=== PATIENT | male | born 1990 ===

== ENCOUNTER 2017-09-20 11:14 | Emergency (ER) | payer MEDICAID ==
[2017-09-20 11:44] VITALS: BP 130/79; PULSE 81; TEMP 98; O2SAT 100
--- NOTE | 2017-09-20 14:15 | C.PDOC ---
History Of Present Illness 27 y/o male presents to the ER complaining of pain and swelling to the right nipple which has been present for the past 5 days. Patient states that there is an small ingrown hair in the nipple. Patient denies having fever,chills, and other complaints. Time Seen by Provider: 09/20/17 14:11 Chief Complaint (Nursing): Abnormal Skin Integrity History Per: Patient History/Exam Limitations: no limitations Onset/Duration Of Symptoms: Days Current Symptoms Are (Timing): Still Present Severity: Moderate Past Medical History Reviewed: Historical Data, Nursing Documentation, Vital Signs Vital Signs: Last Vital Signs Temp 98 F 09/20/17 11:40 Pulse 81 09/20/17 11:40 Resp 20 09/20/17 15:07 BP 130/79 09/20/17 11:40 Pulse Ox 100 09/20/17 16:27 - Medical History PMH: Asthma Other Surgeries: Hx of surgeries Family History: States: No Known Family Hx - Social History Hx Alcohol Use: No Hx Substance Use: No - Immunization History Hx Tetanus Toxoid Vaccination: Yes Hx Influenza Vaccination: Yes Hx Pneumococcal Vaccination: Yes Review Of Systems Except As Marked, All Systems Reviewed And Found Negative. Constitutional: Negative for: Fever, Chills Musculoskeletal: Positive for: Other (pain to the right nipple) Physical Exam - Physical Exam Appears: Non-toxic, No Acute Distress Skin: Normal Color, Warm, Other (4x 4 cm indurated tender abscess with surrounding area of cellulitis) Head: Atraumatic, Normacephalic Eye(s): bilateral: Normal Inspection Nose: Normal Oral Mucosa: Moist Neck: Supple Chest: Symmetrical Cardiovascular: Rhythm Regular Respiratory: Normal Breath Sounds, No Rales, No Rhonchi, No Wheezing Neurological/Psych: Oriented x3, Normal Speech ED Course And Treatment O2 Sat by Pulse Oximetry: 100 (RA) Pulse Ox Interpretation: Normal Progress Note: motrin, lido infiltrated, keflex PO. s/p I&D x 6-10 cc's purulent puss, much improved - Incision & Drainage Of Abscess Anesthesia: Lidocaine 1% Prep Used: Sterile Water, Betadine Procedure: Incised W/Scalpel Blade#: (10), Drained Pus (10 CC's), Irrigated Cavity W/Saline, Probed To Break Up Loculations, Packed W/Gauze, Cultures Obtained And Sent To Lab Medical Decision Making Medical Decision Making: small R inframammary abscess now drained and packed Disposition Doctor Will See Patient In The: Office Counseled Patient/Family Regarding: Studies Performed, Diagnosis - Disposition Referrals: [facility] at [facility] [Outside] Disposition: HOME/ ROUTINE Disposition Time: 14:58 Condition: GOOD Additional Instructions: drained abscess for 6-10 cc's of puss packing in place- will remain for 2 days, then pulled @ follow-up visit 1: our local [facility] 2: our [facility] (Emergency Department) 3: your primary doctor. Continue keflex 500 mg twice a day for a total of 5 days Motrin 400-600 mg every 6 hours as needed ice pack to area 1/2 hour per hour for local pain relief. Prescriptions: Cephalexin [Keflex] 500 mg PO BID #9 capsule Instructions: Skin Abscess Forms: [employer] (Nepali) - Clinical Impression Clinical Impression: Abscess - Scribe Statement The provider has reviewed the documentation as recorded by the Sher Mackenzie Provider Attestation: All medical record entries made by the Sher were at my direction and personally dictated by me. I have reviewed the chart and agree that the record accurately reflects my personal performance of the history, physical exam, medical decision making, and the department course for this patient. I have also personally directed, reviewed, and agree with the discharge instructions and disposition.
[2017-09-20] MEDS ORDERED: Lidocaine 1% Inj (20ml) INFIL STA (14:16)
[2017-09-20] MEDS ORDERED: Lidocaine Hydrochloride 0 ML INJ ONE (14:38)
[2017-09-20] MEDS ORDERED: Lidocaine 2% Inj (20ml) ONE (14:44)
[2017-09-20 15:07] VITALS: RESP 20
== END 2017-09-20 15:06 | disposition home or self-care (01) ==
LOC: C.ER 11:14
DX: N61.1 Abscess of the breast and nipple (principal)

== ENCOUNTER 2017-09-22 08:39 | Inpatient (IN) | payer MEDICARE, MEDICAID ==
[2017-09-22] MEDS ORDERED: Sodium Chloride 0.9% 1,000 ML IV ONE (09:23)
[2017-09-22] MEDS ORDERED: Vancomycin 1 gm/NS 200 ml 1 GM/200 ML BAG IVPB STA (09:24)
--- NOTE | 2017-09-22 09:25 | C.PDOC ---
History Of Present Illness 27 yo male come in for scheduled wound check after abscess over Right breast was I&D here in ED on . Pt reports, pain is worsen over Right breast with increase in swelling, mod draining. Pt sts, was not given antibiotic. Pt admits, (+) chills and fever. Ambulate to ED for evaluation, appears in pain. Time Seen by Provider: 09/22/17 09:17 Chief Complaint (Nursing): Abnormal Skin Integrity History Per: Patient Onset/Duration Of Symptoms: Gradual Past Medical History Reviewed: Historical Data, Nursing Documentation, Vital Signs Vital Signs: Last Vital Signs Temp 98.1 F 09/22/17 12:47 Pulse 74 09/22/17 12:47 Resp 18 09/22/17 12:47 BP 114/76 09/22/17 12:47 Pulse Ox 99 09/22/17 12:47 - Medical History PMH: Asthma Family History: States: No Known Family Hx - Social History Hx Alcohol Use: No Hx Substance Use: No - Immunization History Hx Tetanus Toxoid Vaccination: Yes (2016) Hx Influenza Vaccination: No Hx Pneumococcal Vaccination: No Review Of Systems Except As Marked, All Systems Reviewed And Found Negative. Constitutional: Positive for: Fever, Chills ENT: Negative for: Throat Pain Cardiovascular: Negative for: Chest Pain Respiratory: Negative for: Cough, Shortness of Breath Gastrointestinal: Negative for: Nausea, Vomiting, Abdominal Pain Musculoskeletal: Negative for: Neck Pain, Back Pain Skin: Positive for: Lesions Neurological: Negative for: Weakness, Numbness Physical Exam - Physical Exam Appears: Well, Non-toxic, No Acute Distress Skin: Normal Color, Warm, Dry, No Rash Head: Normacephalic Eye(s): bilateral: PERRL Nose: No Flaring Oral Mucosa: Moist, No Drooling Throat: No Erythema, No Drooling Neck: Trachea Midline, Supple Lymphatic: No Axilla Node Tenderness Chest: Symmetrical, Other (Right breast tender mass with open wound just below Right nipple with inserted packing, (+) flactulance, diffuse erythema , (+) proximal streaking.) Cardiovascular: Rhythm Regular Respiratory: No Decreased Breath Sounds, No Accessory Muscle Use, No Stridor, No Wheezing Gastrointestinal/Abdominal: Soft, No Tenderness, No Distention, No Guarding Back: No CVA Tenderness Extremity: Normal ROM, No Pedal Edema, No Deformity Neurological/Psych: Oriented x3, Normal Speech ED Course And Treatment - Laboratory Results Result Diagrams: 09/22/17 10:26 09/22/17 10:26 Lab Interpretation: Abnormal O2 Sat by Pulse Oximetry: 99 Progress Note: Blood work review,m mild leukocystosis. Right breast: exam c/w abscess with cellulitis. Case discussed with Dr. Green and admission arranged. ID consult with . Surgery consult with . Disposition - Disposition Disposition: HOSPITALIZED Disposition Time: 11:20 Condition: STABLE - Clinical Impression Clinical Impression: Breast abscess in male, Cellulitis
[2017-09-22] MEDS ORDERED: Sodium Chloride 0.9% 1,000 ML ONE (10:26)
[2017-09-22] MEDS ORDERED: Morphine 4 MG/ML VIAL ONE (10:28)
[2017-09-22 10:30] LABS: BASO # 0.1 K/uL (0.0-0.2); BASO % 0.4 % (0.0-2.0); EOS # 0.3 K/uL (0.0-0.7); HEMOGLOBIN 13.8 g/dL (12.0-18.0); LYMPH # 1.7 K/uL (1.0-4.3); LYMPH % 10.3 % (20.0-40.0); MEAN CELL VOLUME 89.2 fL (80.0-94.0); MEAN CORPUSCULAR HEMOGLOBIN 29.6 pg (27.0-31.0); MEAN CORPUSCULAR HGB CONC 33.2 g/dL (33.0-37.0); MEAN PLATELET VOLUME 7.4 fL (7.2-11.7); MONO # 1.7 K/uL (0.0-0.8); MONO % 10.2 % (0.0-10.0); NEUT # 12.6 K/uL (1.8-7.0); NEUT % 77.1 % (50.0-75.0); RBC 4.66 Mil/uL (4.40-5.90); WHITE BLOOD COUNT 16.4 K/uL (4.8-10.8)
[2017-09-22 11:01] LABS: BLOOD UREA NITROGEN 14 mg/dL (9-20); CALCIUM 9.1 mg/dl (8.6-10.4); GFR AFRICAN-AMERICAN > 60; GFR NON-AFRICAN AMERICAN > 60
[2017-09-22 12:34] LABS: URINE CLARITY Clear (Clear); URINE COLOR YELLOW (YELLOW)
[2017-09-22 12:35] LABS: URINE BLOOD NEGATIVE (NEGATIVE); URINE GLUCOSE (UA) NEGATIVE (Normal); URINE LEUKOCYTE ESTERASE Negative Leu/uL (Negative); URINE PROTEIN NEGATIVE (NEGATIVE); URINE UROBILINOGEN 0.2 mg/dL (0.2-1.0)
--- NOTE | 2017-09-22 13:55 | CP.PCM.CON ---
<Dima Avalos Jem - Last Filed: 09/22/17 15:50> History of Present Illness - History of Present Illness History of Present Illness: PGY-1 surgery consult note for Dr Herndon. Mr Emanuel is a 27 year old male with a PMHx of asthma and ADHD who presented to the ER for a skin infection under his right nipple. He stated that he first noticed a redness 7 days ago which became progressively worse to the point that a hole formed and liquid started draining out. During this time he took tylenol for pain without relief. 2 days ago he went to [facility] where an I&D was performed - 10cc of pus drained and the infected area was packed. He was sent home on a 5 day course of Keflex which he has been taking as prescribed. He returned to the ER today because he stated the wound has been getting larger and the pain worse, in addition, he's also been having fever and chills the past 2 days. He had a temperature of 101 yesterday. He denied nausea, abdominal pain, diarrhea, vomiting. PMHx: Asthma, ADHD PSHx: Right jaw repair with metal insertion (2007), left toe and left heel surgery with 2 screws inserted (2014,2015) Home Meds: Albuterol PRN Allergies: PCN, Bactrim - rash/hives FamHx: Denies SocialHx: 5 cigs per day for past 19 years, denies alcohol use, smokes marijuana occasionally, denies other illicit drug use, currently visiting from [place], lives with uncle at home, works as a [employer] POA: Mother - Fabi Adkins Review of Systems - Constitutional Constitutional: Chills, Fever. absent: Fatigue, Headache, Weakness - EENT Eyes: absent: Change in Vision Ears: absent: Ear Pain Nose/Mouth/Throat: absent: Nasal Congestion - Cardiovascular Cardiovascular: absent: Chest Pain - Respiratory Respiratory: absent: Cough, Wheezing - Gastrointestinal Gastrointestinal: absent: Abdominal Pain, Constipation, Diarrhea, Nausea, Vomiting - Genitourinary Genitourinary: absent: Dysuria - Musculoskeletal Musculoskeletal: absent: Arthralgias - Neurological Neurological: absent: Confusion Past Patient History - Past Social History Smoking Status: Light Smoker < 10 Cigarettes Daily - PULMONARY Hx Asthma: Yes - PSYCHIATRIC Hx Substance Use: No - SURGICAL HISTORY Hx Surgeries: Yes Other/Comment: JAW SX, LEFT FOOT BIG TOE - ANESTHESIA Hx Anesthesia: Yes Hx Anesthesia Reactions: No Meds Allergies/Adverse Reactions: Allergies Allergy/AdvReac Type Severity Reaction Status Date / Time Penicillins Allergy Severe SWELLING Verified 09/22/17 08:53 sulfamethoxazole Allergy Severe SWELLING Verified 09/22/17 08:53 [From Bactrim] trimethoprim [From Bactrim] Allergy Severe SWELLING Verified 09/22/17 08:53 Physical Exam - Constitutional Appears: Well, No Acute Distress - Head Exam Head Exam: ATRAUMATIC, NORMAL INSPECTION - Eye Exam Eye Exam: EOMI Pupil Exam: PERRL - ENT Exam ENT Exam: Mucous Membranes Moist - Neck Exam Neck exam: Positive for: Normal Inspection. Negative for: Tenderness - Respiratory Exam Respiratory Exam: Clear to Auscultation Bilateral, NORMAL BREATHING PATTERN. absent: Rales, Rhonchi, Wheezes - Cardiovascular Exam Cardiovascular Exam: REGULAR RHYTHM, +S1, +S2. absent: Bradycardia, Tachycardia , JVD, Systolic Murmur - GI/Abdominal Exam GI & Abdominal Exam: Normal Bowel Sounds, Soft. absent: Tenderness - Extremities Exam Extremities exam: Positive for: normal capillary refill, normal inspection, pedal pulses present. Negative for: calf tenderness - Neurological Exam Neurological exam: CN II-XII Intact, Oriented x3 - Psychiatric Exam Psychiatric exam: Normal Affect, Normal Mood - Skin Skin Exam: Warm Additional comments: Right breast tender mass with open wound just below Right nipple with inserted packing, (+) flactulance, diffuse erythema , (+) proximal streaking. Results - Vital Signs Recent Vital Signs: Last Vital Signs Temp 97.8 F 09/22/17 13:27 Pulse 77 09/22/17 13:27 Resp 20 09/22/17 13:27 BP 134/81 09/22/17 13:27 Pulse Ox 99 09/22/17 13:27 - Labs Result Diagrams: 09/22/17 10:26 09/22/17 10:26 Labs: Laboratory Results - last 24 hr 09/22/17 09/22/17 09/22/17 10:26 10:26 11:16 WBC 16.4 H RBC 4.66 Hgb 13.8 Hct 41.6 MCV 89.2 MCH 29.6 MCHC 33.2 RDW 14.0 Plt Count 297 MPV 7.4 Neut % (Auto) 77.1 H Lymph % (Auto) 10.3 L [place] % (Auto) 10.2 H Eos % (Auto) 2.0 Baso % (Auto) 0.4 Neut # (Auto) 12.6 H Lymph # (Auto) 1.7 [place] # (Auto) 1.7 H Eos # (Auto) 0.3 Baso # (Auto) 0.1 Sodium 143 Potassium 3.9 Chloride 105 Carbon Dioxide 28 Anion Gap 15 BUN 14 Creatinine 0.9 Est GFR ( Amer) > 60 Est GFR (Non-Af Amer) > 60 Random Glucose 91 Calcium 9.1 Urine Color Yellow Urine Clarity Clear Urine pH 6.0 Ur Specific [place] 1.010 Urine Protein Negative Urine Glucose (UA) Negative Urine Ketones Negative Urine Blood Negative Urine Nitrate Negative Urine Bilirubin 6.0 Urine Urobilinogen 0.2 Ur Leukocyte Esterase Negative Urine RBC (Auto) < 1 Assessment & Plan - Assessment and Plan (Free Text) Assessment: A/P: 27 year old male with right breast abscess and cellulitis: -Bedside I&D with packing performed successfully today -Vancomycin 1g IVPB BID -Morphine 4mg IVP Q4 PRN for pain -ID on board -F/U cultures D/W Dr. Herndon <Soren Herndon - Last Filed: 10/01/17 18:52> Results - Vital Signs Recent Vital Signs: Last Vital Signs Temp 98.1 F 09/27/17 07:40 Pulse 56 L 09/27/17 07:40 Resp 20 09/27/17 07:40 BP 134/80 09/27/17 07:40 Pulse Ox 97 09/27/17 07:40 - Labs Result Diagrams: 09/25/17 08:11 09/25/17 08:11 Attending/Attestation - Attestation I have personally seen and examined this patient.: Yes I have fully participated in the care of the patient.: Yes I have reviewed all pertinent clinical information: Yes Notes (Text): Pt was seen and examined at bedside Agree with above note and assessment Pt with Right breast cellulitis and abscess previous incision present Right breast tenderness with pus discharge Ass: Recurrent right breast abscess Plan : I & D at bedside Consent C/w IV antibiotics c/w current mx Plan d.w pt and primary team in detail Risk and benefit explained in detail.
--- NOTE | 2017-09-22 13:59 | CP.PCM.CON ---
History of Present Illness - History of Present Illness History of Present Illness: INFECTIOUS DISEASE CONSULT; HPI; .27-year-old male with past medical history off bronchial asthma, ADHD who presented to [facility] for right breast abscess which he noticed about 7 days ago and which progressively got worse to the point that on hold performed and it started draining. He took Tylenol for pain relief and came to the ER 2 days ago with an I&D was performed and 10 cc of pus was drained and infected area was packed. Patient was then sent home on by mouth Keflex for 5 days. Patient felt that it was not getting better and the pain got worse. Also he noticed spreading cellulitis around the nipple area and experienced fever and chills for the past 2 days. Patient also reports a fever of 101 yesterday. Patient was admitted for further management and IV antibiotics. PMHx: Asthma, ADHD PSHx: Right jaw repair with metal insertion (2007), left toe and left heel surgery with 2 screws inserted (2014,2015) Home Meds: Albuterol PRN Allergies: PCN, Bactrim - rash/hives, bUT PATIENT TOLERATED PO KEFLEX OPD.. 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: Mother - Fabi Adkins Review of Systems - Constitutional Constitutional: Chills, Fever, Malaise - EENT Eyes: absent: Blurred Vision, Other Visual Disturbances Nose/Mouth/Throat: absent: Mouth Lesions - Cardiovascular Cardiovascular: Chest Pain (AROUND THE NIPPLE AREA) - Respiratory Respiratory: absent: Cough, Hemoptysis - Gastrointestinal Gastrointestinal: absent: Abdominal Pain, Constipation, Diarrhea, Nausea, Vomiting - Integumentary Integumentary: Skin Ulcer (NOTED BELOW THE RIGHT BREAST NIPPLE WITH SURROUNDING ERYTHEMA AND WARMTH.) - Neurological Neurological: absent: Headaches - Hematologic/Lymphatic Hematologic: As Per HPI. absent: Easy Bleeding, Easy Bruising, Lymphadenopathy Past Patient History - Past Social History Smoking Status: Light Smoker < 10 Cigarettes Daily - PULMONARY Hx Asthma: Yes - PSYCHIATRIC Hx Substance Use: No - SURGICAL HISTORY Hx Surgeries: Yes Other/Comment: JAW SX, LEFT FOOT BIG TOE - ANESTHESIA Hx Anesthesia: Yes Hx Anesthesia Reactions: No Meds Allergies/Adverse Reactions: Allergies Allergy/AdvReac Type Severity Reaction Status Date / Time Penicillins Allergy Severe SWELLING Verified 09/22/17 08:53 sulfamethoxazole Allergy Severe SWELLING Verified 09/22/17 08:53 [From Bactrim] trimethoprim [From Bactrim] Allergy Severe SWELLING Verified 09/22/17 08:53 - Medications Medications: Current Medications Vancomycin HCl 1,000 mg/ (Sodium Chloride) 250 mls @ 166.6 mls/hr IVPB Q12H RYLEE PRN Reason: Protocol Physical Exam - Constitutional Appears: No Acute Distress - Head Exam Head Exam: NORMAL INSPECTION - Eye Exam Eye Exam: EOMI, PERRL - ENT Exam ENT Exam: Normal Oropharynx - Neck Exam Neck exam: Positive for: Normal Inspection - Respiratory Exam Respiratory Exam: NORMAL BREATHING PATTERN - Cardiovascular Exam Cardiovascular Exam: REGULAR RHYTHM, +S1, +S2 - GI/Abdominal Exam GI & Abdominal Exam: Normal Bowel Sounds, Soft. absent: Organomegaly - Extremities Exam Extremities exam: Positive for: normal capillary refill, pedal pulses present. Negative for: calf tenderness, pedal edema Additional comments: MULTIPLE TATTOO VASQUEZ ON ARMS/ NECK REGION - Neurological Exam Neurological exam: Alert, CN II-XII Intact, Oriented x3, Reflexes Normal - Psychiatric Exam Psychiatric exam: Normal Mood - Skin Skin Exam: Normal Color, Warm Additional comments: Skin Ulcer (NOTED BELOW THE RIGHT BREAST NIPPLE WITH SURROUNDING ERYTHEMA AND WARMTH.) Results - Vital Signs Recent Vital Signs: Last Vital Signs Temp 97.8 F 09/22/17 13:27 Pulse 77 09/22/17 13:27 Resp 20 09/22/17 13:27 BP 134/81 09/22/17 13:27 Pulse Ox 99 09/22/17 13:27 - Labs Result Diagrams: 09/22/17 10:26 09/22/17 10:26 Labs: Laboratory Results - last 24 hr 09/22/17 09/22/17 09/22/17 10:26 10:26 11:16 WBC 16.4 H RBC 4.66 Hgb 13.8 Hct 41.6 MCV 89.2 MCH 29.6 MCHC 33.2 RDW 14.0 Plt Count 297 MPV 7.4 Neut % (Auto) 77.1 H Lymph % (Auto) 10.3 L [place] % (Auto) 10.2 H Eos % (Auto) 2.0 Baso % (Auto) 0.4 Neut # (Auto) 12.6 H Lymph # (Auto) 1.7 [place] # (Auto) 1.7 H Eos # (Auto) 0.3 Baso # (Auto) 0.1 Sodium 143 Potassium 3.9 Chloride 105 Carbon Dioxide 28 Anion Gap 15 BUN 14 Creatinine 0.9 Est GFR ( Amer) > 60 Est GFR (Non-Af Amer) > 60 Random Glucose 91 Calcium 9.1 Urine Color Yellow Urine Clarity Clear Urine pH 6.0 Ur Specific [place] 1.010 Urine Protein Negative Urine Glucose (UA) Negative Urine Ketones Negative Urine Blood Negative Urine Nitrate Negative Urine Bilirubin 6.0 Urine Urobilinogen 0.2 Ur Leukocyte Esterase Negative Urine RBC (Auto) < 1 Assessment & Plan (1) Breast abscess in male Assessment and Plan: S/P DEBRIDEMENT, WOUND CULTURE. CONTINUE iv VANCOMYCIN 1 G EVERY 12 HOURLY.09/21/17 ADD IV CIPRO 400 MG EVERY 12 HOURLY FOR GRAM-NEGATIVE COVER. 09/22/17. F/U vANCO TROUGH LEVEL PRIOR TO THE FOURTH DOSE AND KEEP BETWEEN 10 AND 20. fOLLOW-UP CULTURES TO ADJUST ABX. LWC PER SURGERY. Status: Acute (2) Asthma Status: Acute (3) Cellulitis Status: Acute
[2017-09-22] MEDS ORDERED: Vancomycin 1 gm/NS 200 ml 1 GM/200 ML BAG IVPB SCH (14:00)
[2017-09-22] MEDS ORDERED: Lidocaine 2% w Epi 1:100,000 Inj IJ ONE (14:22)
[2017-09-22] MEDS ORDERED: Morphine 4 MG/ML VIAL IVP PRN (14:32)
[2017-09-22] MEDS ORDERED: Oxycodone/Acetaminophen 5/325 mg Tab PO PRN (19:00)
[2017-09-22] MEDS: Vancomycin 1 gm/NS 200 ml 1 GM/200 ML BAG IVPB SCH (22:04)
--- NOTE | 2017-09-23 02:11 | HP ---
CHIEF COMPLAINT: Right breast pain. HISTORY OF PRESENT ILLNESS: Mr. Damon Emanuel is a 27-year-old male came for wound check after abscess over right breast; was I and D in [facility] Emergency Room Department on 09/20/2017. The patient reported pain is worse over right breast with increase in swelling, it is draining. The patient says he was not given antibiotics. The patient admits positive chills and fevers and looks like the patient is in pain. No hematuria or hematochezia. No swelling of the leg. Of note, has abnormal skin integrity. PAST MEDICAL HISTORY: Asthma. FAMILY HISTORY: Father and mother, noncontributory. SOCIAL HISTORY: No smoking, no drugs, no ethanol. ALLERGIES: THE PATIENT IS ALLERGIC TO PENICILLIN, SULFAMETHOXAZOLE-TRIMETHOPRIM. REVIEW OF SYSTEMS: The patient was seen and examined at bedside, looking comfortable except that pain. No nausea, vomiting or diarrhea. No hematuria or hematochezia. No headache. No dizziness. No chest pain, no palpitations. PHYSICAL EXAMINATION: VITAL SIGNS: Temperature 98.1, pulse 74, respiratory rate 18, blood pressure 140/76, pulse oximetry 99%. HEENT: Head normocephalic and atraumatic. Eyes, PERRLA. Extraocular muscles intact. Conjunctivae clear. Nose patent. Mucous membranes moist. NECK: Supple. No carotid bruits. No JVD or thyromegaly. CHEST: Right breast tender mass with open wound just below the right nipple with inserted packing plus flatulence, diffuse erythema plus proximal streaking. HEART: S1 and S2 positive. LUNGS: Clear to auscultation. ABDOMEN: Soft. Bowel sounds positive. No organomegaly. EXTREMITIES: No edema, no cyanosis. NEUROLOGICAL: The patient is awake, alert, moving all 4 extremities. No focal deficits. LABORATORY DATA: White blood cells 16.4, hemoglobin 13.8, hematocrit 41.6, platelets 294, sodium 143, potassium 3.9, BUN 14, creatinine 0.9, glucose 91. ASSESSMENT AND PLAN: Mr. Damon Emanuel is a 27-year-old boy with leukocytosis. The patient has breast abscess in male, cellulitis, history of asthma. Discussion done with Dr. Sharla Rodriguez. She started the patient on IV antibiotics. The patient has history of attention deficit hyperactivity disorder also, right jaw repair with metal insertion, left toe and left heel surgery with two screws inserted. Bedside incision and drainage with packing performed successfully today. Vancomycin 1 gm IV b.i.d. given, morphine given. Follow with cultures. Discussion done with Dr. Sharla Rodriguez. We will follow. Yaz Lei MD MTDJuventino
[2017-09-23] MEDS: Oxycodone/Acetaminophen 5/325 mg Tab PO PRN ×6 (02:30→22:51)
[2017-09-23] MEDS: Ciprofloxacin 400mg/200ml D5W 400 MG/200 ML BAG IVPB SCH ×2 (05:20→16:34)
[2017-09-23 07:32] LABS: BASO # 0.1 K/uL (0.0-0.2); BASO % 0.5 % (0.0-2.0); EOS # 0.3 K/uL (0.0-0.7); EOS % 2.9 % (0.0-4.0); HEMOGLOBIN 12.8 g/dL (12.0-18.0); LYMPH # 2.1 K/uL (1.0-4.3); LYMPH % 19.2 % (20.0-40.0); MEAN CELL VOLUME 88.7 fL (80.0-94.0); MEAN CORPUSCULAR HEMOGLOBIN 30.9 pg (27.0-31.0); MEAN CORPUSCULAR HGB CONC 34.8 g/dL (33.0-37.0); MEAN PLATELET VOLUME 7.4 fL (7.2-11.7); MONO % 9.6 % (0.0-10.0); NEUT # 7.4 K/uL (1.8-7.0); NEUT % 67.8 % (50.0-75.0); NRBC % 0.1 % (0.0-2.0); RBC 4.13 Mil/uL (4.40-5.90); RED CELL DISTRIBUTION WIDTH 13.8 % (11.5-14.5); WHITE BLOOD COUNT 10.9 K/uL (4.8-10.8)
--- NOTE | 2017-09-23 07:44 | CP.PCM.PN ---
<Alanis Lorenzo - Last Filed: 09/23/17 08:00> Subjective - Date & Time of Evaluation Date of Evaluation: 09/23/17 Time of Evaluation: 07:00 - Subjective Subjective: Patient seen and examined at bedside this AM. No adverse events overnight. Patient denies any fevers or chills, pain is well controlled on the percocet. Objective - Vital Signs/Intake and Output Vital Signs (last 24 hours): Temp Pulse Resp BP Pulse Ox 98.2 F 83 20 126/75 96 09/23/17 05:30 09/23/17 00:00 09/23/17 00:00 09/23/17 00:00 09/23/17 00:00 Intake and Output: 09/23/17 09/23/17 06:59 18:59 Intake Total 1300 Balance 1300 - Medications Medications: Current Medications Acetaminophen (Tylenol 325mg Tab) 650 mg PO Q4H PRN PRN Reason: pain fever Famotidine (Pepcid) 40 mg PO DAILY [facility] Last Admin: 09/22/17 18:14 Dose: 40 mg Vancomycin/Sodium Chloride (Vancomycin 1 Gm/Ns 200 Ml) 1 gm in 200 mls @ 133 mls/hr IVPB Q12H RYLEE PRN Reason: Protocol Stop: 09/27/17 23:01 Last Admin: 09/22/17 22:04 Dose: 133 mls/hr Ciprofloxacin (Cipro 400mg/200ml Dsw) 400 mg in 200 mls @ 133 mls/hr IVPB Q12H RYLEE PRN Reason: Protocol Last Admin: 09/23/17 05:20 Dose: 133 mls/hr Nicotine (Nicoderm Cq) 1 patch TD DAILY [facility] Last Admin: 09/22/17 16:19 Dose: 1 patch Ondansetron HCl (Zofran Inj) 4 mg IVP Q6 PRN PRN Reason: Nausea/Vomiting Oxycodone/Acetaminophen (Percocet 5/325 Mg Tab) 2 tab PO Q4H PRN PRN Reason: Pain, moderate (4-7) Stop: 09/25/17 19:01 Last Admin: 09/23/17 06:20 Dose: 2 tab Pneumococcal Polyvalent Vaccine (Pneumovax 23 Vaccine) 0.5 ml SC .ONCE ONE Stop: 09/25/17 16:38 - Labs Labs: 09/23/17 07:18 09/22/17 10:26 - Constitutional Appears: Well, Non-toxic, No Acute Distress - Head Exam Head Exam: ATRAUMATIC, NORMOCEPHALIC - Eye Exam Eye Exam: Normal appearance. absent: Conjunctival injection, Scleral icterus - ENT Exam ENT Exam: Mucous Membranes Moist, Normal Oropharynx - Respiratory Exam Respiratory Exam: NORMAL BREATHING PATTERN. absent: Accessory Muscle Use, Respiratory Distress - Cardiovascular Exam Cardiovascular Exam: RRR - GI/Abdominal Exam GI & Abdominal Exam: absent: Distended - Neurological Exam Neurological Exam: Alert, Awake, Oriented x3 - Psychiatric Exam Psychiatric exam: Normal Affect, Normal Mood - Skin Skin Exam: Dry, Normal Color, Warm Additional comments: right breast with moderate induration and erythema with two incision sites around the nipple with mild amount of seropurulent drainage. Assessment and Plan - Assessment and Plan (Free Text) Assessment: 27M with abscess of the right breast Plan: -Daily packing changes while in the hospital--patient is clear for discharge with PO antibiotics from a surgical standpoint -F/U ID recs for antibiotics -PRN pain medication -daily CBC while in the hospital Discussed with Dr. Katrina Lorenzo, PGY2 <Soren Herndon B - Last Filed: 10/01/17 18:59> Objective - Vital Signs/Intake and Output Vital Signs (last 24 hours): Temp Pulse Resp BP Pulse Ox 98.1 F 56 L 20 134/80 97 09/27/17 07:40 09/27/17 07:40 09/27/17 07:40 09/27/17 07:40 09/27/17 07:40 - Labs Labs: 09/25/17 08:11 09/25/17 08:11 Attending/Attestation - Attestation I have personally seen and examined this patient.: Yes I have fully participated in the care of the patient.: Yes I have reviewed all pertinent clinical information, including history, physical exam and plan: Yes Notes (Text): Pt was seen and examined at bedside Agree with above note and assessment Pt with Right breast abscess s/p I & D IV antibiotics Local wound care c/w current mx Plan d.w pt and primary team in detail
[2017-09-23 07:47] LABS: IRON 21 ug/dL (49-181)
[2017-09-23 07:52] LABS: ALB/GLOB RATIO 1.1 (1.0-2.1); ALBUMIN 3.4 g/dL (3.5-5.0); ALT/SGPT 28 U/L (21-72); AST/SGOT 25 U/L (17-59); BILIRUBIN,DIRECT 0.4 mg/dL (0.0-0.4); BLOOD UREA NITROGEN 8 mg/dL (9-20); GFR AFRICAN-AMERICAN > 60; GFR NON-AFRICAN AMERICAN > 60
[2017-09-23 07:58] LABS: % IRON SATURATION 7 (20-55); TOTAL IRON BINDING CAPACITY 304 ug/dL (250-450)
--- NOTE | 2017-09-23 08:08 | PCM.SURG1 ---
Surgeon's Initial Post Op Note - Surgeon's Notes Surgeon: Dr Herndon Systems Planner: Dr Bergman PGY3 Type of Anesthesia: Local Pre-Operative Diagnosis: right breast abscess Operative Findings: right breast abscess Post-Operative Diagnosis: as above Operation Performed: incision and drainage of right breast abscess Specimen/Specimens Removed: culture Estimated Blood Loss: EBL {In ML}: 1 Blood Products Given: N/A Drains Used: No Drains (iodoform packing) Post-Op Condition: Good Date of Surgery/Procedure: 09/22/17 Time of Surgery/Procedure: 15:30
[2017-09-23 09:00] LABS: FOLATE 9.7 ng/mL
[2017-09-23] MEDS: Vancomycin 1 gm/NS 200 ml 1 GM/200 ML BAG IVPB SCH ×2 (10:27→22:50)
[2017-09-23] MEDS: Sodium Chloride 0.9% 1,000 ML IV SCH (16:29)
--- NOTE | 2017-09-23 20:04 | CP.PCM.PN ---
Subjective - Date & Time of Evaluation Date of Evaluation: 09/23/17 Time of Evaluation: 20:03 - Subjective Subjective: CHIEF COMPLAINTS TODAY : AFEBRILE S/P I & D RT. BREAST ABSCESS 09/22/17. C/O PAIN POST OP SITE ROS. HEENT : N. Resp : No cough, wheezing ,pleuritic CP ,or hemoptysis Cardio : No anginal CP, PND, orthopnea, palpitation GI : No abd.pain, n/v ,diarrhea or GI bleeding . 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 Musculoskel : No joint swelling , Derm : RT BREAST DRESSING C/D/I Psych : Normal affect. Ext : No swelling ,calf pain PE. Pt. is alert awake in no distress. V.S As noted in the chart Head ,ear nose,throat and eyes : Normal. Neck : Supple with normal carotids. Lungs: Clear air entry. Heart : S1 & S2 normal with S4. No murmur. Abd : Soft non tender with normal bowel sounds. Neuro : Moves all ext. with no localized deficit. Ext : No edema with intact pulses.Non tender calves Derm : RT BREAST DRESSING INTACT. LABS/RADIOLOGY: RT BREAST WOUND-GPC NARES +VE MRSA ASSESSMENT RT BREAST ABSCESS S/P I &D R/O MRSA ABSCESS /PLAN : CONTINUE IV ABX LWC PER SURGERY. Objective - Vital Signs/Intake and Output Vital Signs (last 24 hours): Temp Pulse Resp BP Pulse Ox 97.6 F 72 20 117/68 97 09/23/17 15:00 09/23/17 15:00 09/23/17 15:00 09/23/17 15:00 09/23/17 15:00 - Medications Medications: Current Medications Acetaminophen (Tylenol 325mg Tab) 650 mg PO Q4H PRN PRN Reason: pain fever Famotidine (Pepcid) 40 mg PO DAILY [facility] Last Admin: 09/23/17 11:11 Dose: 40 mg Vancomycin/Sodium Chloride (Vancomycin 1 Gm/Ns 200 Ml) 1 gm in 200 mls @ 133 mls/hr IVPB Q12H [facility] PRN Reason: Protocol Stop: 09/27/17 23:01 Last Admin: 09/23/17 10:27 Dose: 133 mls/hr Ciprofloxacin (Cipro 400mg/200ml Dsw) 400 mg in 200 mls @ 133 mls/hr IVPB Q12H [facility] PRN Reason: Protocol Last Admin: 09/23/17 16:34 Dose: 133 mls/hr Sodium Chloride (Sodium Chloride 0.9%) 1,000 mls @ 100 mls/hr IV .Q10H [facility] Last Admin: 09/23/17 16:29 Dose: 100 mls/hr Mupirocin (Bactroban Ointment) 1 gm NS BID [facility] Stop: 09/28/17 18:01 Nicotine (Nicoderm Cq) 1 patch TD DAILY [facility] Last Admin: 09/23/17 11:11 Dose: 1 patch Ondansetron HCl (Zofran Inj) 4 mg IVP Q6 PRN PRN Reason: Nausea/Vomiting Oxycodone/Acetaminophen (Percocet 5/325 Mg Tab) 2 tab PO Q4H PRN PRN Reason: Pain, moderate (4-7) Stop: 09/25/17 19:01 Last Admin: 09/23/17 18:50 Dose: 2 tab Pneumococcal Polyvalent Vaccine (Pneumovax 23 Vaccine) 0.5 ml SC .ONCE ONE Stop: 09/25/17 16:38 - Labs Labs: 09/23/17 07:18 09/23/17 07:18 Assessment and Plan (1) Breast abscess in male Status: Acute (2) Asthma Status: Acute (3) Cellulitis Status: Acute
[2017-09-24] MEDS: Oxycodone/Acetaminophen 5/325 mg Tab PO PRN ×5 (03:07→22:02)
[2017-09-24] MEDS: Sodium Chloride 0.9% 1,000 ML IV SCH ×3 (03:20→13:08)
[2017-09-24] MEDS: Ciprofloxacin 400mg/200ml D5W 400 MG/200 ML BAG IVPB SCH ×2 (03:46→16:25)
[2017-09-24 08:00] LABS: BASO # 0.1 K/uL (0.0-0.2); BASO % 1.4 % (0.0-2.0); EOS # 0.5 K/uL (0.0-0.7); EOS % 5.1 % (0.0-4.0); HEMOGLOBIN 13.1 g/dL (12.0-18.0); LYMPH # 2.3 K/uL (1.0-4.3); LYMPH % 26.2 % (20.0-40.0); MEAN CORPUSCULAR HEMOGLOBIN 30.2 pg (27.0-31.0); MEAN CORPUSCULAR HGB CONC 33.9 g/dL (33.0-37.0); MEAN PLATELET VOLUME 7.7 fL (7.2-11.7); MONO # 0.8 K/uL (0.0-0.8); MONO % 9.3 % (0.0-10.0); NEUT # 5.1 K/uL (1.8-7.0); RBC 4.32 Mil/uL (4.40-5.90); RED CELL DISTRIBUTION WIDTH 13.9 % (11.5-14.5); WHITE BLOOD COUNT 8.8 K/uL (4.8-10.8)
--- NOTE | 2017-09-24 08:38 | CP.PCM.PN ---
<Alanis Lorenzo - Last Filed: 09/24/17 08:34> Subjective - Date & Time of Evaluation Date of Evaluation: 09/24/17 Time of Evaluation: 06:40 - Subjective Subjective: Patient seen and examined thsi AM. Patient complained of pain in the night and was given one dose of toradol. States that pain is well controlled this AM. Packing changed at bedside which patient tolerated well. Objective - Vital Signs/Intake and Output Vital Signs (last 24 hours): Temp Pulse Resp BP Pulse Ox 98.2 F 72 20 119/81 95 09/23/17 23:28 09/23/17 23:28 09/23/17 23:28 09/23/17 23:28 09/23/17 23:28 - Medications Medications: Current Medications Acetaminophen (Tylenol 325mg Tab) 650 mg PO Q4H PRN PRN Reason: pain fever Docusate Sodium (Colace) 100 mg PO DAILY [facility] Famotidine (Pepcid) 40 mg PO DAILY [facility] Last Admin: 09/23/17 11:11 Dose: 40 mg Ciprofloxacin (Cipro 400mg/200ml Dsw) 400 mg in 200 mls @ 133 mls/hr IVPB Q12H [facility] PRN Reason: Protocol Last Admin: 09/24/17 03:46 Dose: 133 mls/hr Sodium Chloride (Sodium Chloride 0.9%) 1,000 mls @ 100 mls/hr IV .Q10H [facility] Last Admin: 09/24/17 03:20 Dose: Not Given Vancomycin HCl 1,350 mg/ (Sodium Chloride) 500 mls @ 166.6 mls/hr IVPB Q12H [facility] PRN Reason: Protocol Mupirocin (Bactroban Ointment) 1 gm NS BID [facility] Stop: 09/28/17 18:01 Nicotine (Nicoderm Cq) 1 patch TD DAILY [facility] Last Admin: 09/23/17 11:11 Dose: 1 patch Ondansetron HCl (Zofran Inj) 4 mg IVP Q6 PRN PRN Reason: Nausea/Vomiting Oxycodone/Acetaminophen (Percocet 5/325 Mg Tab) 2 tab PO Q4H PRN PRN Reason: Pain, moderate (4-7) Stop: 09/25/17 19:01 Last Admin: 09/24/17 03:07 Dose: 2 tab Pneumococcal Polyvalent Vaccine (Pneumovax 23 Vaccine) 0.5 ml SC .ONCE ONE Stop: 09/25/17 16:38 - Labs Labs: 09/24/17 07:49 09/23/17 07:18 - Constitutional Appears: Well, Non-toxic, No Acute Distress - Head Exam Head Exam: ATRAUMATIC, NORMOCEPHALIC - Eye Exam Eye Exam: Normal appearance. absent: Conjunctival injection, Scleral icterus - ENT Exam ENT Exam: Mucous Membranes Moist, Normal Oropharynx - Respiratory Exam Respiratory Exam: NORMAL BREATHING PATTERN. absent: Accessory Muscle Use, Respiratory Distress - GI/Abdominal Exam GI & Abdominal Exam: Soft. absent: Distended - Extremities Exam Extremities Exam: absent: Calf Tenderness, Pedal Edema, Tenderness - Neurological Exam Neurological Exam: Alert, Awake, Oriented x3 - Psychiatric Exam Psychiatric exam: Normal Affect, Normal Mood - Skin Skin Exam: Dry, Normal Color, Warm Additional comments: right breast surgery site with improvement in surrounding induration, moderate amount of sero-purulent drainage Assessment and Plan - Assessment and Plan (Free Text) Assessment: 27M with subcutaneous abscess of the right breast Plan: -Will continue daily packing changes while in the hospital. -Patient is clear for discharge with PO antibiotics per ID from a surgical standpoint -Will continue to follow up cultures--gram positive cocci so far -PRN PO pain medication -Continue IV abx per ID Discussed with Dr. Katrina Lorenzo, PGY2 <Soren Herndon - Last Filed: 10/01/17 18:59> Objective - Vital Signs/Intake and Output Vital Signs (last 24 hours): Temp Pulse Resp BP Pulse Ox 98.1 F 56 L 20 134/80 97 09/27/17 07:40 09/27/17 07:40 09/27/17 07:40 09/27/17 07:40 09/27/17 07:40 - Labs Labs: 09/25/17 08:11 09/25/17 08:11 Attending/Attestation - Attestation I have fully participated in the care of the patient.: Yes I have reviewed all pertinent clinical information, including history, physical exam and plan: Yes Notes (Text): Pt is improving clinically IV antibiotics Local wound care c/w current mx Plan d.w primary team in detail
[2017-09-24 08:49] LABS: BLOOD UREA NITROGEN 6 mg/dL (9-20); CALCIUM 9.2 mg/dl (8.6-10.4); GFR AFRICAN-AMERICAN > 60; GFR NON-AFRICAN AMERICAN > 60
[2017-09-24] MEDS: Vancomycin 1,350 MG in Sodium Chloride 0.9% 500 ML IVPB SCH ×2 (09:26→21:57)
--- NOTE | 2017-09-24 10:19 | PN ---
DATE: 09/23/2017. SUBJECTIVE: The patient was seen and examined in his room in the presence of his nurse on the bedside late evening in his room, still complaining about pain in the right breast, getting Percocet every 4 to 6 hours, 2 Percocet, but still having pain. No fever, no chills. No nausea, vomiting or diarrhea. No hematuria or hematochezia. No headache. No dizziness. PHYSICAL EXAMINATION: VITAL SIGNS: Temperature 98.2, pulse 83, respiratory rate 20, blood pressure 126/75, pulse oximetry 96%. HEENT: Head normocephalic and atraumatic. Eyes, PERRLA. Extraocular muscles intact. Conjunctivae clear. Nose patent. Mucous membranes moist. NECK: Supple. No carotid bruits. No JVD or thyromegaly. CHEST: Bilaterally symmetrical. HEART: S1 and S2 positive. LUNGS: Clear to auscultation. ABDOMEN: Soft. Bowel sounds positive. No organomegaly. EXTREMITIES: No edema, no cyanosis. NEUROLOGICAL: The patient is awake, alert, moving all 4 extremities. No focal deficits. MEDICATIONS: Tylenol, Pepcid, vancomycin, ciprofloxacin, Nicoderm patch, Zofran, oxycodone, Pneumovax. LABORATORY DATA: White blood cells 10.9, hemoglobin 12.8, hematocrit 36.7, platelet 269, sodium 146, potassium 3.9, BUN 14, creatinine 0.9, glucose 91. ASSESSMENT AND PLAN: Mr. Damon Emanuel is a 27 years old male with leukocytosis, methicillin-resistant Staphylococcus aureus in the nares. Bactroban started by ID. Has abscess on the right breast, there are 2 abscesses with packing and dressing done. The patient is getting daily packing changes while in the hospital. ID is on the case. Given IV antibiotics. Reviewed surgical notes, reviewed ID notes also. Ready to quit smoking, education done. Continue antibiotics as per ID. GI and DVT prophylaxis. Repeat labs. History of asthma. We will follow up. Yaz Lei MD
--- NOTE | 2017-09-24 23:58 | CP.PCM.PN ---
Subjective - Date & Time of Evaluation Date of Evaluation: 09/24/17 Time of Evaluation: 23:58 - Subjective Subjective: CHIEF COMPLAINTS TODAY : AFEBRILE S/P I & D RT. BREAST ABSCESS 09/22/17. C/O PAIN POST OP SITE ROS. HEENT : N. Resp : No cough, wheezing ,pleuritic CP ,or hemoptysis Cardio : No anginal CP, PND, orthopnea, palpitation GI : No abd.pain, n/v ,diarrhea or GI bleeding . 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 Musculoskel : No joint swelling , Derm : RT BREAST DRESSING C/D/I Psych : Normal affect. Ext : No swelling ,calf pain PE. Pt. is alert awake in no distress. V.S As noted in the chart Head ,ear nose,throat and eyes : Normal. Neck : Supple with normal carotids. Lungs: Clear air entry. Heart : S1 & S2 normal with S4. No murmur. Abd : Soft non tender with normal bowel sounds. Neuro : Moves all ext. with no localized deficit. Ext : No edema with intact pulses.Non tender calves Derm : RT BREAST DRESSING INTACT. LABS/RADIOLOGY: RT BREAST WOUND-GPC NARES +VE MRSA ASSESSMENT RT BREAST ABSCESS S/P I &D R/O MRSA ABSCESS /PLAN : CONTINUE IV ABX LWC PER SURGERY. Objective - Vital Signs/Intake and Output Vital Signs (last 24 hours): Temp Pulse Resp BP Pulse Ox 97.5 F L 72 20 127/76 98 09/24/17 22:00 09/24/17 22:00 09/24/17 22:00 09/24/17 22:00 09/24/17 22:00 Intake and Output: 09/24/17 09/25/17 18:59 06:59 Intake Total 1300 800 Balance 1300 800 - Medications Medications: Current Medications Acetaminophen (Tylenol 325mg Tab) 650 mg PO Q4H PRN PRN Reason: pain fever Docusate Sodium (Colace) 100 mg PO DAILY [facility] Last Admin: 09/24/17 09:19 Dose: 100 mg Famotidine (Pepcid) 40 mg PO DAILY [facility] Last Admin: 09/24/17 09:19 Dose: 40 mg Ciprofloxacin (Cipro 400mg/200ml Dsw) 400 mg in 200 mls @ 133 mls/hr IVPB Q12H [facility] PRN Reason: Protocol Last Admin: 09/24/17 16:25 Dose: 133 mls/hr Sodium Chloride (Sodium Chloride 0.9%) 1,000 mls @ 100 mls/hr IV .Q10H [facility] Last Admin: 09/24/17 13:08 Dose: Not Given Vancomycin HCl 1,350 mg/ (Sodium Chloride) 500 mls @ 166.6 mls/hr IVPB Q12H [facility] PRN Reason: Protocol Last Admin: 09/24/17 21:57 Dose: 166.6 mls/hr Mupirocin (Bactroban 2% Nasal) 1 gm VICENTE BID [facility] Stop: 09/28/17 18:01 Nicotine (Nicoderm Cq) 1 patch TD DAILY [facility] Last Admin: 09/24/17 09:20 Dose: 1 patch Ondansetron HCl (Zofran Inj) 4 mg IVP Q6 PRN PRN Reason: Nausea/Vomiting Last Admin: 09/24/17 10:15 Dose: 4 mg Oxycodone/Acetaminophen (Percocet 5/325 Mg Tab) 2 tab PO Q4H PRN PRN Reason: Pain, moderate (4-7) Stop: 09/25/17 19:01 Last Admin: 09/24/17 22:02 Dose: 2 tab Pneumococcal Polyvalent Vaccine (Pneumovax 23 Vaccine) 0.5 ml SC .ONCE ONE Stop: 09/25/17 16:38 - Labs Labs: 09/24/17 07:49 09/24/17 07:49 Assessment and Plan (1) Breast abscess in male Status: Acute (2) Asthma Status: Acute (3) Cellulitis Status: Acute
[2017-09-25] MEDS: Oxycodone/Acetaminophen 5/325 mg Tab PO PRN ×5 (01:57→18:33)
[2017-09-25] MEDS: Ciprofloxacin 400mg/200ml D5W 400 MG/200 ML BAG IVPB SCH ×2 (04:50→15:59)
[2017-09-25 08:18] LABS: HEMOGLOBIN 12.7 g/dL (12.0-18.0); MEAN CELL VOLUME 88.2 fL (80.0-94.0); MEAN CORPUSCULAR HEMOGLOBIN 30.5 pg (27.0-31.0); MEAN CORPUSCULAR HGB CONC 34.6 g/dL (33.0-37.0); MEAN PLATELET VOLUME 7.2 fL (7.2-11.7); RBC 4.17 Mil/uL (4.40-5.90); WHITE BLOOD COUNT 7.5 K/uL (4.8-10.8)
[2017-09-25 08:35] LABS: BLOOD UREA NITROGEN 10 mg/dL (9-20); CALCIUM 8.7 mg/dl (8.6-10.4); GFR AFRICAN-AMERICAN > 60; GFR NON-AFRICAN AMERICAN > 60
--- NOTE | 2017-09-25 08:45 | CP.PCM.PN ---
<Martita Bergman - Last Filed: 09/25/17 08:42> Subjective - Date & Time of Evaluation Date of Evaluation: 09/25/17 Time of Evaluation: 08:42 - Subjective Subjective: General surgery - DR. Herndon Pt S&E. TONE. Pt has mild pain at the site of I&D but improving. He denies any F/C, SOB/Cp, N/V. He has been OOb ambulating. Pt states that girlfriend is POC and able to continue packing changes at home. Objective - Vital Signs/Intake and Output Vital Signs (last 24 hours): Temp Pulse Resp BP Pulse Ox 98.1 F 83 18 121/82 96 09/25/17 07:32 09/25/17 07:32 09/25/17 07:32 09/25/17 07:32 09/25/17 07:32 Intake and Output: 09/25/17 09/25/17 06:59 18:59 Intake Total 1600 Balance 1600 - Medications Medications: Current Medications Acetaminophen (Tylenol 325mg Tab) 650 mg PO Q4H PRN PRN Reason: pain fever Last Admin: 09/25/17 01:25 Dose: 650 mg Docusate Sodium (Colace) 100 mg PO DAILY [facility] Last Admin: 09/24/17 09:19 Dose: 100 mg Famotidine (Pepcid) 40 mg PO DAILY [facility] Last Admin: 09/24/17 09:19 Dose: 40 mg Ciprofloxacin (Cipro 400mg/200ml Dsw) 400 mg in 200 mls @ 133 mls/hr IVPB Q12H [facility] PRN Reason: Protocol Last Admin: 09/25/17 04:50 Dose: 133 mls/hr Sodium Chloride (Sodium Chloride 0.9%) 1,000 mls @ 100 mls/hr IV .Q10H [facility] Last Admin: 09/24/17 13:08 Dose: Not Given Vancomycin HCl 1,350 mg/ (Sodium Chloride) 500 mls @ 166.6 mls/hr IVPB Q12H [facility] PRN Reason: Protocol Last Admin: 09/24/17 21:57 Dose: 166.6 mls/hr Mupirocin (Bactroban 2% Nasal) 1 gm VICENTE BID [facility] Stop: 09/28/17 18:01 Nicotine (Nicoderm Cq) 1 patch TD DAILY [facility] Last Admin: 09/24/17 09:20 Dose: 1 patch Ondansetron HCl (Zofran Inj) 4 mg IVP Q6 PRN PRN Reason: Nausea/Vomiting Last Admin: 09/24/17 10:15 Dose: 4 mg Oxycodone/Acetaminophen (Percocet 5/325 Mg Tab) 2 tab PO Q4H PRN PRN Reason: Pain, moderate (4-7) Stop: 09/25/17 19:01 Last Admin: 09/25/17 05:56 Dose: 2 tab Pneumococcal Polyvalent Vaccine (Pneumovax 23 Vaccine) 0.5 ml SC .ONCE ONE Stop: 09/25/17 16:38 - Labs Labs: 09/25/17 08:11 09/25/17 08:11 - Constitutional Appears: No Acute Distress - Head Exam Head Exam: ATRAUMATIC, NORMAL INSPECTION, NORMOCEPHALIC - Eye Exam Eye Exam: Normal appearance - Respiratory Exam Respiratory Exam: NORMAL BREATHING PATTERN. absent: Respiratory Distress - Neurological Exam Neurological Exam: Alert, Oriented x3 - Psychiatric Exam Psychiatric exam: Normal Affect, Normal Mood - Skin Skin Exam: Dry, Intact Additional comments: R breast s/p I&D with 2 incisions, iodoform packing changed, mild surounding erythema and induration improving Assessment and Plan - Assessment and Plan (Free Text) Assessment: 27M with R breast abscess, s/p I&D -Clear for Discharge home from surgical standpoint -Continue Daily packing changes with iodoform -F/U with PMD in 1 week -PO Abx as per ID - f/u reccs Dr Herndon <Soren Herndon - Last Filed: 10/01/17 18:55> Objective - Vital Signs/Intake and Output Vital Signs (last 24 hours): Temp Pulse Resp BP Pulse Ox 98.1 F 56 L 20 134/80 97 09/27/17 07:40 09/27/17 07:40 09/27/17 07:40 09/27/17 07:40 09/27/17 07:40 - Labs Labs: 09/25/17 08:11 09/25/17 08:11 Attending/Attestation - Attestation I have fully participated in the care of the patient.: Yes I have reviewed all pertinent clinical information, including history, physical exam and plan: Yes Notes (Text): Pt is improving clinically IV antibiotics Local wound care c/w current mx Plan primary team in detail
[2017-09-25] MEDS: Mupirocin 2% Ointment (NASAL) NAS SCH ×2 (09:02→17:17)
[2017-09-25] MEDS: Vancomycin 1,350 MG in Sodium Chloride 0.9% 500 ML IVPB SCH ×2 (09:17→21:40)
[2017-09-25] MEDS: Sodium Chloride 0.9% 1,000 ML IV SCH (09:20)
[2017-09-25 15:51] VITALS: RESP 20
[2017-09-25] MEDS ORDERED: Pneumococcal 23-Valent Vaccine SC ONE (16:37)
[2017-09-25] MEDS ORDERED: Oxycodone/Acetaminophen 5/325 mg Tab PO ONE (23:48)
[2017-09-26] MEDS: Ciprofloxacin 400mg/200ml D5W 400 MG/200 ML BAG IVPB SCH ×2 (03:58→16:30)
[2017-09-26] MEDS: Sodium Chloride 0.9% 1,000 ML IV SCH ×2 (05:07→08:02)
--- NOTE | 2017-09-26 06:03 | PN ---
DATE: 09/24/2017. SUBJECTIVE: The patient seen and examined at bedside on 09/24/2017. The patient still has pain in the right breast, getting pain medications and having dressings. No nausea, vomiting, diarrhea. No hematuria or hematochezia. No swelling of the legs. No headaches. No fever. No chills. PHYSICAL EXAMINATION: VITAL SIGNS: Temperature 97.5, pulse 72, respiratory rate 20, blood pressure 127/76, pulse oximetry 98%. HEENT: Head is normocephalic and atraumatic. Eyes, PERRLA. Extraocular muscles intact. Conjunctivae clear. Nose patent. Mucous membranes moist. NECK: Supple. No carotid bruits. No JVD or thyromegaly. CHEST: Bilaterally symmetrical. HEART: S1, S2 positive. LUNGS: Clear to auscultation. ABDOMEN: Soft. Bowel sounds are present. No organomegaly. EXTREMITIES: No edema. No cyanosis. NEUROLOGIC: The patient is awake and alert, moving all 4 extremities, no focal deficits. MEDICATIONS: Tylenol, Colace, Pepcid, ciprofloxacin, NS, vancomycin, Bactroban, nicotine, Zofran, oxycodone, Pneumovax. LABORATORY DATA: White blood cells is 9.8, hemoglobin 13.1, hematocrit 38.5, platelets 341. Sodium 140, potassium 4, BUN 6, creatinine 1, glucose 71. ASSESSMENT AND PLAN: 27 years old male with breast abscess in male, history of asthma, cellulitis of the right breast, methicillin-resistant Staphylococcus aureus in the nares and according to ID, the patient has methicillin-resistant Staphylococcus aureus in the wound also. Getting antibiotics IV, pain medication and local wound care. Continue present treatment. Gastrointestinal and deep venous thrombosis prophylaxis. Repeat labs. Yaz Lei MD MTDD
[2017-09-26] MEDS: Oxycodone/Acetaminophen 5/325 mg Tab PO PRN ×4 (08:00→20:42)
--- NOTE | 2017-09-26 08:15 | RAD ---
Chest x-ray single frontal view History: Free air. Comparison: 09/26/2017 Findings: Mild diffuse increased interstitial lung markings which may represent mild venous congestion. Question mild patchy increased markings at the right lung base. Heart size within normal limits. Impression: Mild diffuse increased interstitial lung markings which may represent mild venous congestion. Question mild patchy increased markings at the right lung base.
[2017-09-26] MEDS: Vancomycin 1,350 MG in Sodium Chloride 0.9% 500 ML IVPB SCH ×2 (09:25→21:47)
[2017-09-26] MEDS: Mupirocin 2% Ointment (NASAL) NAS SCH ×3 (09:27→21:50)
--- NOTE | 2017-09-26 12:46 | CP.PCM.PN ---
Subjective - Date & Time of Evaluation Date of Evaluation: 09/26/17 Time of Evaluation: 12:45 - Subjective Subjective: CHIEF COMPLAINTS TODAY : AFEBRILE S/P I & D RT. BREAST ABSCESS 09/22/17. wound packing in place ROS. HEENT : N. Resp : No cough, wheezing ,pleuritic CP ,or hemoptysis Cardio : No anginal CP, PND, orthopnea, palpitation GI : No abd.pain, n/v ,diarrhea or GI bleeding . REGISTERED NURSE CARDIAC : No headache, vertigo, focal deficit. Musculoskel : No joint swelling , Derm : RT BREAST DRESSING C/D/I Psych : Normal affect. Ext : No swelling ,calf pain PE. Pt. is alert awake in no distress. V.S As noted in the chart Head ,ear nose,throat and eyes : Normal. Neck : Supple with normal carotids. Lungs: Clear air entry. Heart : S1 & S2 normal with S4. No murmur. Abd : Soft non tender with normal bowel sounds. Neuro : Moves all ext. with no localized deficit. Ext : No edema with intact pulses.Non tender calves Derm : RT BREAST DRESSING INTACT. LABS/RADIOLOGY: RT BREAST WOUND-+ve MRSA NARES +VE MRSA ASSESSMENT RT BREAST MRSA ABSCESS S/P I &D 09/22/17 /PLAN : CONTINUE IV ABX IV VANCOMYCIN 1350MG IV [id number] IV CIPRO 400MG IV Q 12HRLY. CASE DISCUSSED WITH STAFF.WHEN CLEARED BY SURGERY PT CAN BE DC ON PO CIPRO 500MG PO BID X 14 DAYS. PO CLEOCIN 300MG PO TID X 10DAYS. PROBIOTIC PT TO F/U CLOSELY BY HIS PMD TO BE REEVALUATED FOR ABX IF NEED BE. LWC PER SURGERY. WILL F/U PT WHILE IN HOSPITAL. Objective - Vital Signs/Intake and Output Vital Signs (last 24 hours): Temp Pulse Resp BP Pulse Ox 98.0 F 65 20 128/78 100 09/26/17 07:30 09/26/17 07:30 09/26/17 07:30 09/26/17 07:30 09/26/17 07:30 Intake and Output: 09/26/17 09/26/17 06:59 18:59 Intake Total 1300 Balance 1300 - Medications Medications: Current Medications Docusate Sodium (Colace) 200 mg PO BID [facility] Last Admin: 09/26/17 09:27 Dose: 200 mg Famotidine (Pepcid) 40 mg PO DAILY [facility] Last Admin: 09/26/17 09:27 Dose: 40 mg Ciprofloxacin (Cipro 400mg/200ml Dsw) 400 mg in 200 mls @ 133 mls/hr IVPB Q12H [facility] PRN Reason: Protocol Last Admin: 09/26/17 03:58 Dose: 133 mls/hr Sodium Chloride (Sodium Chloride 0.9%) 1,000 mls @ 100 mls/hr IV .Q10H [facility] Last Admin: 09/26/17 08:02 Dose: 100 mls/hr Vancomycin HCl 1,350 mg/ (Sodium Chloride) 500 mls @ 166.6 mls/hr IVPB Q12H [facility] PRN Reason: Protocol Last Admin: 09/26/17 09:25 Dose: 166.6 mls/hr Ibuprofen (Motrin Tab) 600 mg PO TID PRN PRN Reason: Pain, moderate (4-7) Last Admin: 09/25/17 16:03 Dose: 600 mg Mupirocin (Bactroban 2% Nasal) 1 gm VICENTE BID [facility] Stop: 09/28/17 18:01 Last Admin: 09/26/17 09:27 Dose: 1 gm Nicotine (Nicoderm Cq) 1 patch TD DAILY [facility] Last Admin: 09/26/17 09:29 Dose: 1 patch Ondansetron HCl (Zofran Inj) 4 mg IVP Q6 PRN PRN Reason: Nausea/Vomiting Last Admin: 09/24/17 10:15 Dose: 4 mg Oxycodone/Acetaminophen (Percocet 5/325 Mg Tab) 2 tab PO Q4H PRN PRN Reason: Pain, moderate (4-7) Stop: 09/29/17 07:25 Last Admin: 09/26/17 11:57 Dose: 2 tab - Labs Labs: 09/25/17 08:11 09/25/17 08:11 Assessment and Plan (1) Breast abscess in male Status: Acute (2) Asthma Status: Acute (3) Cellulitis Status: Acute
--- NOTE | 2017-09-26 14:26 | CP.PCM.PN ---
Subjective - Date & Time of Evaluation Date of Evaluation: 09/26/17 Time of Evaluation: 14:23 - Subjective Subjective: PT SEEN THIS MORNING FOR POSS D/C. PT STATES HE FEELS BETTER TODAY. DENIES CHILLS, FEVER, H/A, SOB, CP. ADMITS TO PAIN ON AND OFF TO RIGHT BREAST ABSCESS SITE BUT PAIN IS RELIEVED WITH PRN PAIN MEDICINE. DISCUSSED PLAN FOR D/C WITH DR. SUAZO, WHO IS RECOMMENDING A DOSE OF IV PCN OR MEROPENEM; PER HIM PT HAS NO ALLERGY TO PCN AND SHOULD RECEIVE A DOSE PRIOR TO D/C, THEN BE D/C IN THE MORNING. I DISCUSSED THE WOUND CX RESULTS WITH DR. BEATTY AND DR. SUAZO' S CONCERNS/RECOMMENDATIONS. PER DR. BEATTY, WE WILL NOT GIVE PCN OR MEROPENEM; WE WILL CONTINUE IV CIPRO AND VANCO X1 MORE NIGHT THEN D/C IN THE MORNING WITH PO MEDS (SEE BELOW). NO FURTHER ORDERS. -FOLLOW UP WITH YOUR PRIMARY DOCTOR WITHIN 3-4 DAYS OF HOSPITAL DISCHARGE--- CALL THE OFFICE SOON POSSIBLE TO SCHEDULE AN APPOINTMENT. -MAKE SURE YOU TAKE A COPY OF YOUR LAB AND CULTURE RESULTS WITH YOU WHEN YOU SEE YOUR DOCTOR; THEY MAY KEEP THE COPIES FOR YOUR OFFICE RECORD. -THE FOLLOWING PRESCRIPTIONS HAVE BEEN SENT TO [facility] FOR YOU. PICK THEM UP SOON YOU ARE DISCHARGED: 1) CIPRO (ANTIBIOTIC) 500 MG (TAKE 1 TABLET) BY MOUTH TWICE A DAY FOR 14 DAYS ( TAKE IN THE MORNING AND EVENING; START ON 09/27/17 AND LAST DOSE SHOULD BE TAKEN ON 10/11/17) 2) CLINDAMYCIN (ANTIBIOTIC) 300 MG (TAKE 1 TABLET) BY MOUTH THREE TIMES A DAY FOR 10 DAYS (TAKE IN THE MORNING, AFTERNOON, AND EVENING; START IN THE AFTERNOON OF 09/27/17 AND LAST DOSE SHOULD BE TAKEN ON THE MORNING OF 10/08/17). 3) FLORASTOR (PROBIOTIC, VITAMIN FOR YOUR STOMACH WHILE ON ANTIBIOTICS) TAKE 1 CAPSULE BY MOUTH TWICE A DAY (MORNING AND EVENING) FOR 14 DAYS (TAKE IN THE MORNING AND EVENING; START ON 09/27/17 AND LAST DOSE SHOULD BE TAKEN ON 10/11/17). 4) PERCOCET 10/325 MG (PAIN MEDICINE) TAKE 1-2 TABLETS BY MOUTH EVERY 6 HOURS ONLY IF YOU NEED IT FOR SEVERE PAIN. 5) MUPIROCIN OINTMENT: APPLY TO THE OUTSIDE OF YOUR NOSTRILS TWICE A DAY UNTIL 09/28/17. -STOP TAKING THE KEFLEX PRESCRIPTION GIVEN TO YOU LAST WEEK. -MAKE SURE YOU CHANGE THE DRESSING TO THE WOUND ON THE RIGHT BREAST AREA ONCE A DAY AND NEEDED. FOLLOW THE DIRECTIONS BELOW: 1) MAKE SURE YOU CLEAN THE AREA WITH NORMAL SALINE. 2) PAT WITH GAUZE PAD TO GENTLY DRY AREA (DO NOT RUB OR PISH HARD ON THE SKIN) 3) INSERT PACKING INTO THE CENTER OF THE OPEN WOUND 4) COVER WITH DRY AND CLEAN GAUZE PAD, COVER WITH TAPE. -IF YOU HAVE ANY FURTHER QUESTIONS OR CONCERNS ABOUT YOUR RECENT HOSPITALIZATION , PLEASE FEEL FREE TO CONTACT DR. MACE'S OFFICE. Objective - Vital Signs/Intake and Output Vital Signs (last 24 hours): Temp Pulse Resp BP Pulse Ox 98.0 F 65 20 128/78 100 09/26/17 07:30 09/26/17 07:30 09/26/17 07:30 09/26/17 07:30 09/26/17 07:30 Intake and Output: 09/26/17 09/26/17 06:59 18:59 Intake Total 1300 Balance 1300 - Medications Medications: Current Medications Docusate Sodium (Colace) 200 mg PO BID [facility] Last Admin: 09/26/17 09:27 Dose: 200 mg Famotidine (Pepcid) 40 mg PO DAILY [facility] Last Admin: 09/26/17 09:27 Dose: 40 mg Ciprofloxacin (Cipro 400mg/200ml Dsw) 400 mg in 200 mls @ 133 mls/hr IVPB Q12H RYLEE PRN Reason: Protocol Last Admin: 09/26/17 03:58 Dose: 133 mls/hr Vancomycin HCl 1,350 mg/ (Sodium Chloride) 500 mls @ 166.6 mls/hr IVPB Q12H RYLEE PRN Reason: Protocol Last Admin: 09/26/17 09:25 Dose: 166.6 mls/hr Ibuprofen (Motrin Tab) 600 mg PO TID PRN PRN Reason: Pain, moderate (4-7) Last Admin: 09/25/17 16:03 Dose: 600 mg Mupirocin (Bactroban 2% Nasal) 1 gm VICENTE BID [facility] Stop: 09/28/17 18:01 Last Admin: 09/26/17 09:27 Dose: 1 gm Nicotine (Nicoderm Cq) 1 patch TD DAILY [facility] Last Admin: 09/26/17 09:29 Dose: 1 patch Ondansetron HCl (Zofran Inj) 4 mg IVP Q6 PRN PRN Reason: Nausea/Vomiting Last Admin: 09/24/17 10:15 Dose: 4 mg Oxycodone/Acetaminophen (Percocet 5/325 Mg Tab) 2 tab PO Q4H PRN PRN Reason: Pain, moderate (4-7) Stop: 09/29/17 07:25 Last Admin: 09/26/17 11:57 Dose: 2 tab - Labs Labs: 09/25/17 08:11 09/25/17 08:11
--- NOTE | 2017-09-26 14:38 | CP.PCM.PN ---
<Alanis Lorenzo - Last Filed: 09/26/17 18:45> Subjective - Date & Time of Evaluation Date of Evaluation: 09/26/17 Time of Evaluation: 18:46 - Subjective Subjective: Patient seen and examined at bedside. Patient states he still has pain but it is well managed. Denies fevers or chills. Dressing changed at bedside. Patietn tolerated Objective - Vital Signs/Intake and Output Vital Signs (last 24 hours): Temp Pulse Resp BP Pulse Ox 98.0 F 65 20 128/78 100 09/26/17 07:30 09/26/17 07:30 09/26/17 07:30 09/26/17 07:30 09/26/17 07:30 Intake and Output: 09/26/17 09/26/17 06:59 18:59 Intake Total 1300 Balance 1300 - Medications Medications: Current Medications Docusate Sodium (Colace) 200 mg PO BID [facility] Last Admin: 09/26/17 09:27 Dose: 200 mg Famotidine (Pepcid) 40 mg PO DAILY [facility] Last Admin: 09/26/17 09:27 Dose: 40 mg Ciprofloxacin (Cipro 400mg/200ml Dsw) 400 mg in 200 mls @ 133 mls/hr IVPB Q12H RYLEE PRN Reason: Protocol Last Admin: 09/26/17 03:58 Dose: 133 mls/hr Vancomycin HCl 1,350 mg/ (Sodium Chloride) 500 mls @ 166.6 mls/hr IVPB Q12H RYLEE PRN Reason: Protocol Last Admin: 09/26/17 09:25 Dose: 166.6 mls/hr Ibuprofen (Motrin Tab) 600 mg PO TID PRN PRN Reason: Pain, moderate (4-7) Last Admin: 09/25/17 16:03 Dose: 600 mg Mupirocin (Bactroban 2% Nasal) 1 gm VICENTE BID [facility] Stop: 09/28/17 18:01 Last Admin: 09/26/17 09:27 Dose: 1 gm Nicotine (Nicoderm Cq) 1 patch TD DAILY [facility] Last Admin: 09/26/17 09:29 Dose: 1 patch Ondansetron HCl (Zofran Inj) 4 mg IVP Q6 PRN PRN Reason: Nausea/Vomiting Last Admin: 09/24/17 10:15 Dose: 4 mg Oxycodone/Acetaminophen (Percocet 5/325 Mg Tab) 2 tab PO Q4H PRN PRN Reason: Pain, moderate (4-7) Stop: 09/29/17 07:25 Last Admin: 09/26/17 11:57 Dose: 2 tab - Labs Labs: 09/25/17 08:11 09/25/17 08:11 - Constitutional Appears: Well, Non-toxic, No Acute Distress - Head Exam Head Exam: ATRAUMATIC, NORMOCEPHALIC - Eye Exam Eye Exam: Normal appearance. absent: Conjunctival injection, Scleral icterus - ENT Exam ENT Exam: Mucous Membranes Moist, Normal Oropharynx - Respiratory Exam Respiratory Exam: NORMAL BREATHING PATTERN. absent: Accessory Muscle Use, Respiratory Distress - GI/Abdominal Exam GI & Abdominal Exam: Soft. absent: Distended, Tenderness - Extremities Exam Extremities Exam: absent: Calf Tenderness, Pedal Edema, Tenderness - Neurological Exam Neurological Exam: Alert, Awake, Oriented x3 - Psychiatric Exam Psychiatric exam: Normal Affect, Normal Mood - Skin Additional comments: right breast skin with persistent induration and erythema and tenderness to the touch, no areas of fluctuance, incision sites open with moderate seropurulent drainage Assessment and Plan - Assessment and Plan (Free Text) Assessment: 27M POD#4 s/p incision and drainage of the right breast abscess Plan: -Continue antibiotics per ID--Discuss current regimen as patient is not improving as much as expected -Continue daily dressing changes -pain medication -management per primary Discussed with Dr. Katrina Lorenzo PGY2 <Soren Herndon - Last Filed: 10/01/17 19:00> Objective - Vital Signs/Intake and Output Vital Signs (last 24 hours): Temp Pulse Resp BP Pulse Ox 98.1 F 56 L 20 134/80 97 09/27/17 07:40 09/27/17 07:40 09/27/17 07:40 09/27/17 07:40 09/27/17 07:40 - Labs Labs: 09/25/17 08:11 09/25/17 08:11 Attending/Attestation - Attestation I have personally seen and examined this patient.: Yes I have fully participated in the care of the patient.: Yes I have reviewed all pertinent clinical information, including history, physical exam and plan: Yes Notes (Text): Pt was seen and examined at bedside Agree with above note and assessment Pt with Right breast abscess s/p I & D Reconsult ID for antibiotics Local wound care c/w current mx Plan d.w pt and primary team in detail
[2017-09-27 00:50] VITALS: TEMP 98.1
[2017-09-27] MEDS: Oxycodone/Acetaminophen 5/325 mg Tab PO PRN ×2 (01:42→06:48)
[2017-09-27] MEDS: Ciprofloxacin 400mg/200ml D5W 400 MG/200 ML BAG IVPB SCH (04:00)
--- NOTE | 2017-09-27 05:34 | PN ---
DATE: BJECTIVE: The patient seen and examined at the bedside, looking comfortable but still complaining about pain. Dressing was changed by surgical team. No fever, no chills. No headache, no dizziness. Tolerated food very well, having good sleep. Bowel movement is good. PHYSICAL EXAMINATION: VITAL SIGNS: Temperature 96, pulse 55, respiratory rate 20, blood pressure 128/78, pulse oximetry 100. HEENT: Head normocephalic, atraumatic. Eyes: PERRLA. Extraocular movements intact. Conjunctivae clear. Nose patent. Mucous membranes moist. NECK: Supple. No carotid bruits. No JVD, thyromegaly. CHEST: Bilaterally symmetrical. HEART: S1 and S2 positive. LUNGS: Clear to auscultation. ABDOMEN: Soft. Bowel sounds positive. No organomegaly. EXTREMITIES: No edema, no cyanosis. NEUROLOGIC: The patient is awake, alert. Moving all 4 extremities. No focal deficits. MEDICATIONS: Colace, Pepcid, Cipro, vancomycin, ibuprofen, Bactroban, nicotine, Zofran, oxycodone. LABS: White blood cell is 7.5, hemoglobin 12.7, hematocrit is 6.8, platelets 329. Sodium 141, potassium 4, BUN 10, creatinine 1, glucose 81. ASSESSMENT AND PLAN: Mr. Adelfo Jose is a 27-year-old male with , of the right first abscess, methicillin-resistant Staphylococcus aureus in naris, getting antibiotics as per Infectious Disease, as per Dr. Sharla Rodriguez. The patient is improving but very slowly. Continue daily dressing change, pain medication and management. Antibiotics per Infectious Disease. Gastrointestinal/deep venous thrombosis prophylaxis, out of bed to physical therapy. We will follow up. Yaz Lei MD MTDJuventino
[2017-09-27 08:14] VITALS: BP 134/80; PULSE 56; O2SAT 97
--- NOTE | 2017-09-27 08:33 | CP.PCM.PN ---
<Martita Bergman - Last Filed: 09/27/17 08:30> Subjective - Date & Time of Evaluation Date of Evaluation: 09/27/17 Time of Evaluation: 08:30 - Subjective Subjective: General Surgery - Dr Herndon Pt S&E. TONE. Pt states pain in R breast is improving. Packing changed with iodoform. No fevers/chills, SOB /chest pain. Objective - Vital Signs/Intake and Output Vital Signs (last 24 hours): Temp Pulse Resp BP Pulse Ox 98.1 F 56 L 20 134/80 97 09/27/17 07:40 09/27/17 07:40 09/27/17 07:40 09/27/17 07:40 09/27/17 07:40 - Medications Medications: Current Medications Docusate Sodium (Colace) 200 mg PO BID [facility] Last Admin: 09/26/17 17:25 Dose: 200 mg Famotidine (Pepcid) 40 mg PO DAILY [facility] Last Admin: 09/26/17 09:27 Dose: 40 mg Ciprofloxacin (Cipro 400mg/200ml Dsw) 400 mg in 200 mls @ 133 mls/hr IVPB Q12H RYLEE PRN Reason: Protocol Last Admin: 09/27/17 04:00 Dose: 133 mls/hr Vancomycin HCl 1,350 mg/ (Sodium Chloride) 500 mls @ 166.6 mls/hr IVPB Q12H RYLEE PRN Reason: Protocol Last Admin: 09/26/17 21:47 Dose: 166.6 mls/hr Ibuprofen (Motrin Tab) 600 mg PO TID PRN PRN Reason: Pain, moderate (4-7) Last Admin: 09/25/17 16:03 Dose: 600 mg Mupirocin (Bactroban 2% Nasal) 1 gm VICENTE BID [facility] Stop: 09/28/17 18:01 Last Admin: 09/26/17 21:50 Dose: 1 gm Nicotine (Nicoderm Cq) 1 patch TD DAILY [facility] Last Admin: 09/26/17 09:29 Dose: 1 patch Ondansetron HCl (Zofran Inj) 4 mg IVP Q6 PRN PRN Reason: Nausea/Vomiting Last Admin: 09/24/17 10:15 Dose: 4 mg Oxycodone/Acetaminophen (Percocet 5/325 Mg Tab) 2 tab PO Q4H PRN PRN Reason: Pain, moderate (4-7) Stop: 09/29/17 07:25 Last Admin: 09/27/17 06:48 Dose: 2 tab - Labs Labs: 09/25/17 08:11 09/25/17 08:11 - Constitutional Appears: No Acute Distress - Head Exam Head Exam: NORMAL INSPECTION, NORMOCEPHALIC - Respiratory Exam Respiratory Exam: NORMAL BREATHING PATTERN. absent: Respiratory Distress - Neurological Exam Neurological Exam: Alert, Oriented x3 - Psychiatric Exam Psychiatric exam: Normal Affect, Normal Mood - Skin Skin Exam: Dry, Normal Color Additional comments: R breast s/p I&D with iodoform packing, erythema improved, still mild induratino Assessment and Plan - Assessment and Plan (Free Text) Assessment: 27M POD#5 s/p I&D of the Right breast abscess Plan: -Discharge with Cipro and Clinda PO x 2 weeks -Continue daily dressing changes -Clear for discharge Dw Dr Herndon <Soren Herndon - Last Filed: 10/01/17 18:58> Objective - Vital Signs/Intake and Output Vital Signs (last 24 hours): Temp Pulse Resp BP Pulse Ox 98.1 F 56 L 20 134/80 97 09/27/17 07:40 09/27/17 07:40 09/27/17 07:40 09/27/17 07:40 09/27/17 07:40 - Labs Labs: 09/25/17 08:11 09/25/17 08:11 Attending/Attestation - Attestation I have personally seen and examined this patient.: Yes I have fully participated in the care of the patient.: Yes I have reviewed all pertinent clinical information, including history, physical exam and plan: Yes Notes (Text): Pt was seen and examined at bedside Agree with above note and assessment Pt can be DC home Po antibiotics Local wound care f/u as outpt Plan d.w pt and primary team in detail Risk and benefit explained in detail.
[2017-09-27] MEDS: Mupirocin 2% Ointment (NASAL) NAS SCH (09:20)
--- NOTE | 2017-09-27 09:54 | CP.PCM.PN ---
Subjective - Date & Time of Evaluation Date of Evaluation: 09/27/17 Time of Evaluation: 09:51 - Subjective Subjective: PT SEEN BY FEEDER DRIVER DR. CHANDLER FOR DRESSING CHANGE AND POST-DISCHARGE WOUND CARE; CLEARED FOR D/C HOME TODAY. PER DR. CHANDLER, DAILY DRESSING CHANGES AND TO RESUME WOUND PACKING X3-5 MORE DAYS. PT HAS ALREADY DONE HIS OWN DRESSING CHANGES HERE AND IS COMFORTABLE DOING THEM AT HOME. RX FOR ALL ABX AND NEW MEDS SENT TO THE PHARMACY YESTERDAY (SEE MY NOTE FROM 09/26). LENGTHY DISCUSSION ABOUT F/U, WOUND CARE, AND MED COMPLIANCE. PT HAS SCHEDULED APPT WITH HIS PMD AT [facility] [employer] [facility] IN [facility] WHERE HE LIVES. HE HAS BEEN GIVEN COPIES OF HIS LABS AND CX REPORT TO GIVE TO HIS PMD ON TUESDAY. VERBALIZES UNDERSTANDING OF ALL INSTRUCTIONS. NO FURTHER ORDERS. Objective - Vital Signs/Intake and Output Vital Signs (last 24 hours): Temp Pulse Resp BP Pulse Ox 98.1 F 56 L 20 134/80 97 09/27/17 07:40 09/27/17 07:40 09/27/17 07:40 09/27/17 07:40 09/27/17 07:40 - Medications Medications: Current Medications Docusate Sodium (Colace) 200 mg PO BID [facility] Last Admin: 09/27/17 09:14 Dose: 200 mg Famotidine (Pepcid) 40 mg PO DAILY [facility] Last Admin: 09/27/17 09:14 Dose: 40 mg Ciprofloxacin (Cipro 400mg/200ml Dsw) 400 mg in 200 mls @ 133 mls/hr IVPB Q12H RYLEE PRN Reason: Protocol Last Admin: 09/27/17 04:00 Dose: 133 mls/hr Vancomycin HCl 1,350 mg/ (Sodium Chloride) 500 mls @ 166.6 mls/hr IVPB Q12H RYLEE PRN Reason: Protocol Last Admin: 09/26/17 21:47 Dose: 166.6 mls/hr Ibuprofen (Motrin Tab) 600 mg PO TID PRN PRN Reason: Pain, moderate (4-7) Last Admin: 09/25/17 16:03 Dose: 600 mg Mupirocin (Bactroban 2% Nasal) 1 gm VICENTE BID [facility] Stop: 09/28/17 18:01 Last Admin: 09/27/17 09:20 Dose: 1 gm Nicotine (Nicoderm Cq) 1 patch TD DAILY [facility] Last Admin: 09/27/17 09:17 Dose: 1 patch Ondansetron HCl (Zofran Inj) 4 mg IVP Q6 PRN PRN Reason: Nausea/Vomiting Last Admin: 09/24/17 10:15 Dose: 4 mg Oxycodone/Acetaminophen (Percocet 5/325 Mg Tab) 2 tab PO Q4H PRN PRN Reason: Pain, moderate (4-7) Stop: 09/29/17 07:25 Last Admin: 09/27/17 06:48 Dose: 2 tab - Labs Labs: 09/25/17 08:11 09/25/17 08:11
--- NOTE | 2017-09-27 11:55 | PN ---
DATE: 09/25/2017 SUBJECTIVE: The patient is 27-year-old male. The patient seen and examined at the bedside on 09/25/2017, looking comfortable, but still complaining about pain in the right breast, status post incision and drainage, getting antibiotics, improving very slowly. No nausea, vomiting, or diarrhea. No fever, no chills. The patient is out of bed, ambulating. Surgical Team is taking care of the wound. PHYSICAL EXAMINATION: VITAL SIGNS: Temperature 98.1, pulse 83, respiratory rate 18, blood pressure 120/80, pulse oximetry 96%. HEENT: Head: Normocephalic, atraumatic. Eyes: PERRLA. Extraocular movements intact. Conjunctivae clear. Nose patent. Mucous membranes moist. NECK: Supple. No carotid bruits. No JVD or thyromegaly. CHEST: Bilaterally symmetrical. HEART: S1 and S2 positive. LUNGS: Clear to auscultation. ABDOMEN: Soft. Bowel sounds positive. No organomegaly. EXTREMITIES: No edema, no cyanosis. NEUROLOGIC: The patient is awake, alert. Moving all 4 extremities. No focal deficits. MEDICATIONS: Tylenol, Colace, Pepcid, Cipro, sodium chloride, vancomycin, Bactroban Nasal 2%, nicotine, Zofran, oxycodone, pneumococcal. LABS: White blood cell 7.5, hemoglobin 12.7, hematocrit 36.8, platelets 329. Sodium 141, potassium 4, BUN 10, creatinine 1, glucose 81. ASSESSMENT AND PLAN: Mr. Damon Emanuel is a 27-year-old male with abscess in the right breast, status post incision and drainage; methicillin-resistant Staphylococcus aureus is on the nares, getting Bactroban cream; methicillin-resistant Staphylococcus aureus from the wound, getting wound care from the Surgical Team, daily packing with iodoform. Continue antibiotics as per Dr. Sharla Rodriguez, gastrointestinal and deep venous thrombosis prophylaxis, repeat labs. We will follow up. Yaz Lei MD
--- NOTE | 2017-10-03 15:37 | DS ---
CHIEF COMPLAINT: Right breast pain. HISTORY OF PRESENT ILLNESS: Mr. Damon Emanuel is a 27-year-old male, came to the emergency room for wound check after abscess that had an incision and drainage in the [facility] Emergency Room on 09/20/2017. The patient reported the pain is worse overnight in the breast with increased swelling, it is draining. The patient says he was not given antibiotics. The patient admits to positive chills, fever. It looks like the patient is in pain. No hematuria or hematochezia. No swelling of the leg. We admitted the patient for surgical consult with Dr. Herndon, ID with Dr. Sharla Rodriguez. Dr. Herndon came, did debridement, wound packing every day, and Dr. Sharla Rodriguez gave IV antibiotics. There was MRSA positive in the wound and then various antibiotics were given and finally on 09/27/2017 surgical team cleared the patient for discharge. The patient was discharged home with p.o. antibiotics. written by nurse practitioner arranged for the patient's medications. He went home, will follow up with his own primary care physician. Copies of labs were given to the patient, so he can show to his primary care physician. PAST MEDICAL HISTORY: Asthma. FAMILY HISTORY: Father and mother, noncontributory. SOCIAL HISTORY: No smoking, no drugs, no ethanol as per the patient. ALLERGIES: THE PATIENT IS ALLERGIC TO PENICILLIN, SULFAMETHOXAZOLE, TRIMETHOPRIM. REVIEW OF SYSTEMS: The patient was seen and examined at bedside on 09/27/2017 and looking comfortable. No more pain. No nausea, vomiting or diarrhea. No hematuria or hematochezia. No fever. No chills. No swelling of the leg. Appetite is appropriate. Having regular food. PHYSICAL EXAMINATION: VITAL SIGNS: Temperature 98.1, pulse 56, respiratory rate 20, blood pressure 124/80, pulse oximetry 97%. HEENT: Head: Normocephalic and atraumatic. Eyes: PERRLA. Extraocular muscles intact. Conjunctivae clear. Nose patent. Mucous membranes moist. NECK: Supple. No carotid bruits. No JVD or thyromegaly. CHEST: Bilaterally symmetrical. HEART: S1 and S2 positive. LUNGS: Clear to auscultation. ABDOMEN: Soft. Bowel sounds positive. No organomegaly. EXTREMITIES: No edema, no cyanosis. NEUROLOGICAL: The patient is awake, alert, moving all 4 extremities. No focal deficits. MEDICATIONS: Colace, Pepcid, Ciprofloxacin, vancomycin, ibuprofen, Bactroban nasal cream, Nicoderm patch, Zofran, Percocet. LABS: White blood cells 7.4, hemoglobin 12.7, hematocrit 36.8, platelets 329. Sodium 141, potassium 4, BUN 10, creatinine 1, glucose 81. ASSESSMENT AND PLAN: Mr. Damon Emanuel is a 27-year-old male with history of asthma, came to the emergency room of [facility] with abscess in the right breast. In the ER, they did incision and drainage, sent home without antibiotics. Now, he came second time with again abscess with cellulitis. The patient was started on IV antibiotics. The patient has hypertension, that is hyperactivity disorder, right jaw repair with metal insertion, left toe and left heel surgery with two screws inserted. Bedside incision and drainage with packing performed successfully by Dr. Herndon's surgical team. Vancomycin started, morphine given. Cultures sent. Then the patient has methicillin-resistant Staphylococcus aureus in the nares, Bactroban cream in the nares given. The patient improved. [place] is from [place] state. Everyday he wants to go home. Then finally Infectious Disease cleared the patient. The patient is seen by surgical nurse practitioner, Dr. Brooks for dressing change and post-discharge wound care. Cleared for discharge home on 09/27/[address] Brooks. Daily dressing changes and to resume wound packing for 3 to 5 more days. The patient already done his wound dressing change in the hospital and he is comfortable doing them at home. Prescription for all antibiotics and new medications and dressing material sent to the Pharmacy yesterday by the nurse practitioner. Lengthy discussion done about the patient about Medicare and medication compliance. The patient has scheduled appointment with his primary care physician at [facility], where he lives. Given copies of his labs and she has reports to give to his PMD on . He verbalized understanding of all the instructions and no further orders and discharged home after clearance of ID and Surgery. Yaz Lei MD ESTELLE
== END 2017-09-27 09:30 | disposition home or self-care (01) | DRG 585 ==
LOC: C.ER 08:39 → C.9E 11:20 → C.3T 12:38 → C.5S 09-23 20:36
PROVIDERS: ADMIT Internal Medicine; ATTEND Internal Medicine
PROC: 0H9T0ZX Drainage of Right Breast, Open Approach, Diagnostic (ICD-10-PCS; principal; 2017-09-22)
DX: N61.1 Abscess of the breast and nipple (principal); B95.62 Methicillin resistant Staphylococcus aureus infection as the cause of diseases classified elsewhere; F90.9 Attention-deficit hyperactivity disorder, unspecified type; J45.909 Unspecified asthma, uncomplicated; F12.90 Cannabis use, unspecified, uncomplicated; Z88.0 Allergy status to penicillin